=== PATIENT | male | born 1965 | race Caucasian/White ===

== ENCOUNTER → 2022-05-02 06:40 | Outpatient (CLI) | payer BC, SELFPAY ==
[2022-05-01 18:49] LABS: Alanine Aminotransferase 28 U/L (12-78); Albumin Level 4.5 g/dl (3.5-5.0); Albumin/Globulin Ratio 1.6 (1.1-1.8); Alkaline Phosphatase 99 U/L (38-126); Anion Gap 9.8 mEq/L (5-15); Aspartate Amino Transferase 33 U/L (17-59); Blood Urea Nitrogen 17 mg/dl (9-20); Calcium 9.7 mg/dl (8.4-10.2); Carbon Dioxide 29 mmol/L (22.0-30.0); Chloride 106 mmol/L (98-107); Estimated Glomerular Filt Rate 88 ml/min (>60); GFR (African American) 106 ML/MIN (>60); Globulin 2.9 g/dL (1.3-3.2); Glucose 122 mg/dl (74-100); Potassium 4.8 mmoL/L (3.5-5.1); Sodium 140 mmol/L (136-145); Total Protein,Serum 7.4 g/dl (6.3-8.2)
[2022-05-01 18:50] LABS: Bilirubin,Total 0.1 mg/dl (0.2-1.3)
[2022-05-01 19:18] LABS: Prostate Specific Ag Screen 0.3 ng/ml (0.0-4.0); Thyroid Stimulating Hormone 0.89 uIU/mL (0.465-4.68)
== END ==
PROVIDERS: PCP Family Medicine; Visit Provider Family Medicine
DX: I10 Essential (primary) hypertension (principal); N40.0 Benign prostatic hyperplasia without lower urinary tract symptoms; R68.89 Other general symptoms and signs; Z12.5 Encounter for screening for malignant neoplasm of prostate
CPT/HCPCS: 80053; 84443; G0103

== ENCOUNTER → 2023-08-20 14:03 | Outpatient (CLI) | payer BC, SELFPAY ==
[2023-08-20 19:04] LABS: Basophils # 0.1 K/mm3 (0-0.2); Basophils % 0.7 % (0.1-2.0); Eosinophils # 0.1 K/mm3 (0.0-0.4); Eosinophils % 1.6 % (0.1-12.0); Hematocrit 47.3 % (42.0-52.0); Hemoglobin 16.1 g/dL (14.1-18.0); Lymphocytes # 3.3 K/mm3 (0.7-4.5); Lymphocytes % 38.1 % (10-50); Mean Corpuscular Hemoglobin 31.9 pg (27.0-31.2); Mean Corpuscular Volume 93.9 fl (80-94); Mean Platelet Volume 8.7 fl (7.4-10.4); Monocytes # 0.5 K/mm3 (0.1-1.0); Monocytes % 5.2 % (1.7-9.3); Neutrophils # 4.7 K/mm3 (1.8-7.8); Neutrophils % 54.5 % (37.0-80.0); Platelet Count 247 K/mm3 (142-424); Red Blood Count 5.04 M/mm3 (4.60-6.20); Red Cell Distribution Width 13.4 % (11.5-17.5); White Blood Count 8.7 K/mm3 (4.8-10.8)
[2023-08-20 19:08] LABS: Alanine Aminotransferase 31 U/L (12-78); Albumin Level 4.7 g/dl (3.5-5.0); Albumin/Globulin Ratio 1.6 (1.1-1.8); Alkaline Phosphatase 78 U/L (38-126); Anion Gap 14.1 mEq/L (5-15); Aspartate Amino Transferase 32 U/L (17-59); Bilirubin,Total 0.6 mg/dl (0.2-1.3); Blood Urea Nitrogen 13 mg/dl (9-20); Calcium 9.1 mg/dl (8.4-10.2); Carbon Dioxide 23 mmol/L (22.0-30.0); Chloride 102 mmol/L (98-107); Estimated Glomerular Filt Rate 117 ml/min (>60); GFR (African American) 141 ML/MIN (>60); Globulin 2.9 g/dL (1.3-3.2); Glucose 127 mg/dl (74-100); Potassium 4.1 mmoL/L (3.5-5.1); Sodium 135 mmol/L (136-145); Total Protein,Serum 7.6 g/dl (6.3-8.2)
[2023-08-20 19:38] LABS: Prostate Specific Ag Screen 0.4 ng/ml (0.0-4.0)
== END ==
PROVIDERS: PCP Family Medicine; Visit Provider Family Medicine
DX: I10 Essential (primary) hypertension (principal); Z12.5 Encounter for screening for malignant neoplasm of prostate
CPT/HCPCS: 80053; 85025; G0103

== ENCOUNTER 2024-09-15 16:35 | Outpatient (CLI) | payer BC, SELFPAY ==
[2024-09-15 18:35] LABS: Alanine Aminotransferase 28 U/L (12-78); Albumin Level 4.5 g/dl (3.5-5.0); Albumin/Globulin Ratio 1.9 (1.1-1.8); Alkaline Phosphatase 40 U/L (38-126); Anion Gap 14.6 mEq/L (5-15); Aspartate Amino Transferase 28 U/L (17-59); Bilirubin,Total 0.5 mg/dl (0.2-1.3); Blood Urea Nitrogen 20 mg/dl (9-20); Calcium 9.7 mg/dl (8.4-10.2); Carbon Dioxide 25 mmol/L (22.0-30.0); Chloride 102 mmol/L (98-107); Estimated Glomerular Filt Rate 87 ml/min (>60); GFR (African American) 105 ML/MIN (>60); Globulin 2.4 g/dL (1.3-3.2); Glucose 107 mg/dl (74-100); Potassium 4.6 mmoL/L (3.5-5.1); Sodium 137 mmol/L (136-145); Total Protein,Serum 6.9 g/dl (6.3-8.2)
[2024-09-21 11:23] LABS: Free Testosterone (Direct) 5.9 pg/mL (7.2-24.0); Testosterone, Total, LC/MS 238.7 ng/dL (264.0-916.0)
== END 2024-09-15 23:59 | disposition home or self-care (01) ==
LOC: LAB.DROPOF 09-16 12:56
PROVIDERS: PCP Family Medicine; Visit Provider Family Medicine
DX: N52.9 Male erectile dysfunction, unspecified (principal); E11.9 Type 2 diabetes mellitus without complications; Z79.85 Long-term (current) use of injectable non-insulin antidiabetic drugs; Z79.84 Long term (current) use of oral hypoglycemic drugs
CPT/HCPCS: 84402; 84403; 80053

== ENCOUNTER 2025-01-26 16:27 | Outpatient (CLI) | payer BC, SELFPAY ==
[2025-01-26 19:49] LABS: Alanine Aminotransferase 25 U/L (12-78); Albumin Level 4.2 g/dl (3.5-5.0); Albumin/Globulin Ratio 1.4 (1.1-1.8); Alkaline Phosphatase 63 U/L (38-126); Anion Gap 11.3 mEq/L (5-15); Aspartate Amino Transferase 23 U/L (17-59); Bilirubin,Total 0.3 mg/dl (0.2-1.3); Blood Urea Nitrogen 15 mg/dl (9-20); Calcium 9.4 mg/dl (8.4-10.2); Carbon Dioxide 26 mmol/L (22.0-30.0); Chloride 104 mmol/L (98-107); Estimated Glomerular Filt Rate 99 ml/min (>60); GFR (African American) 120 ML/MIN (>60); Globulin 2.9 g/dL (1.3-3.2); Glucose 121 mg/dl (74-100); Potassium 4.3 mmoL/L (3.5-5.1); Sodium 137 mmol/L (136-145); Total Protein,Serum 7.1 g/dl (6.3-8.2)
== END 2025-01-26 23:59 | disposition home or self-care (01) ==
LOC: LAB.DROPOF 01-28 13:11
PROVIDERS: PCP Family Medicine; Visit Provider Family Medicine
DX: E11.9 Type 2 diabetes mellitus without complications (principal)
CPT/HCPCS: 80053

== ENCOUNTER 2025-04-20 16:06 | Outpatient (CLI) | payer BC, SELFPAY ==
[2025-04-20 19:43] LABS: Chloride 101 mmol/L (98-107); Potassium 4.2 mmoL/L (3.5-5.1); Sodium 136 mmol/L (136-145)
[2025-04-20 19:46] LABS: Anion Gap 12.2 mEq/L (5-15); Blood Urea Nitrogen 20 mg/dl (9-20); Calcium 9.5 mg/dl (8.4-10.2); Carbon Dioxide 27 mmol/L (22.0-30.0); Creatinine,Serum 0.90 mg/dl (0.66-1.25); Estimated Glomerular Filt Rate 87 ml/min (>60); GFR (African American) 105 ML/MIN (>60); Glucose 119 mg/dl (74-100)
--- OUTSIDE RECORDS SUMMARY | 2025-04-21 11:41 | XMS_ITS | Data Portability ---
Author Organization [facility] Address [address] [place] [address] Assessment Encounter Date Assessment Date Assessment LastModified by Organization Details LastModified Time 07/27/2021 07/27/2021 bmp,hba1c, urine micro alb--he is not fasting today he is doing well he is going for back surgery on 08-15-Dr Marcum will be in the hospital a few days and then will go stay with his parents for a while told him to make sure he does physical therapy--this will help him ambulate and get better faster also watch diet in sweets and starches--high BS interfere with healing he will work on it cannot exercise due to his back taking his 2 meds daily no falls no depression is going thru a divorce aftr 34 years continue meds f/u in 4 months with labs mchary Not available 07/27/2021 08:54:46 08/29/2021 08/29/2021 Hospital f/u done med rec done he has lost 25 pounds from last visit bmp,hba1c,cbc today he is having pain and swelling of right calf-is tender there will check venous us of both legs--today at 1.30 at [facility] will give some Xarelto samples for now--15 mg bid for 2 weeks 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 spent over 45 mins in pt care today home health is coming to his house for PT and OT no falls eats frequent small meals-drink plenty of fluids-stay hydrated if you get any soa or chest pain-go to the ER--he is at risk for PE wrote things down for him-his Mother who is a retired nurse is taking care of him-he is staying with her keep f/u in Oct mchary Not available 08/29/2021 09:54:44 09/19/2021 09/19/2021 hospital f/u also done med rec done no med changes-is on pain meds form spine he takes them often-so is drowsy and sleeping most of the day-not eating much told him he needs to cut down the frequency of pain meds he continues to have some back pain right leg looks good-no swelling, not tender he was seen by hematology in the hospital --they rec indef anticoag as this is his second DVT in a year-they did hemophilia work up -was neg-they found no cause-he did a f/u phone visit with them after d/c--no further f/u is planned he is tolerating Xarelto well-no bleeding no falls--fall precautions d/w him-fredi since he is on a blood thinner let me know if you have any bleeding s/s of PE d/w him BP is good last hba1c was 6.9 %--will see how it is in November he is not eating much-has lost more weight continue meds f/u in 3 months with labs mchary Not available 09/19/2021 12:17:07 12/04/2021 12/04/2021 cmp,lipids,hba 1c he is doing okay 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 for a short while-will sit down if he needs is using a cane now all this due to back pain--but his back is better-he is on Tylenol now which helps him-he sees Spine MD in July he has fallen a few times as he loses his balance at times-told him to use a walker if that will help him balance more he is taking his BP med and statin daily tolerating Xarelto well-no bleeding-will need to stay on anti coag rest of his life he has been eating bad-is eating more fast food now that he is back at work told him to work on his diet--he has gained 14 pounds from last visit he will try continue meds f/u in 3 months with labs and pe mchary Not available 12/04/2021 09:04:41 02/27/2022 02/27/2022 bmp,hba1c Ophthal for diabetes eye exam--Dr. 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 Lab None recorded. Referral None recorded. Procedures None recorded. Surgeries None recorded. Imaging None recorded. Medication Orders simvastatin 20 mg tablet 2021 022 [id number], [address] [place], [address], 10:32:31 Patient TargetsNo targets recorded. Patient InstructionsNo instructions recorded. Reason for Referral None Reported. Results Created Date Observation Date Name Description Value Unit Range Abnormal Flag Note LastModifiedBy Organization Detail LastModifiedTime 07/27/2007/28/2021 ALBUM IN, RANDO M URINE W/CRE ATINI NE creatinine, random urine 81 mg/dL 20-[address] [facility] [address] [facility], [place], [address], 07/28/2021 13:34:48 07/27/20 21 07/28/2021 ALBUM IN, RANDO M URINE W/CRE ATINI NE albumin, urine 0.4 mg/dL see note: normal Refer ence Range : Refer ence Range Not estab lishe d Not Available [facility] [address] [place], [address], 07/28/2021 13:34:48 07/27/2007/28/2021 ALBUM IN, RANDO M URINE W/CRE ATINI NE albumin/crea tinine ratio, random urine 5 mcg/m g_cre at <30 normal The ADA defin es abnor malit ies in album in excre tion as follo ws: Album inuri a Categ ory Resul t (mcg/ mg creat inine ) Claudine l to Mildl y incre ased <30 Moder ately incre ased 30-29 9 Sever bradly incre ased > OR = 300 The ADA recom mends that at least two of three speci mens colle cted withi n a 3-6 month perio d be abnor mal befor e consi chad g a patie nt to be withi n a diagn ostic categ ory. Not Available [facility] [address] [facility], [place], [address], 07/28/2021 13:34:48 07/27/2007/28/2021 BASIC METAB OLIC PANEL glucose 240 mg/dL 65-99 high Fasti ng refer ence inter lise For someo ne witho ut known diabe freddie, a gluco se value >125 mg/dL indic ates that they may have diabe freddie and this shoul d be confi rmed with a follo w-up test. Not Available [facility] [address] [place], [address], 07/28/2021 13:34:49 07/27/2007/28/2021 BASIC METAB OLIC PANEL urea nitrogen (BUN) 18 mg/dL 7-25 normal Not Available [facility] [address] [facility], [place], [address], 07/28/2021 13:34:49 07/27/20 21 07/28/2021 BASIC METAB OLIC PANEL creatinine 0.81 mg/dL 0.70-1 .33 normal For patie nts >49 years of age, the refer ence limit for Creat inine is appro ximat bradly 13% highe r for peopl e ident ified as Afric an-Am haley n. Not Available [facility] [address], [place], [address], 07/28/2021 13:34:49 07/27/20 21 07/28/2021 BASIC METAB OLIC PANEL eGFR non-afr. greenlandic 101 mL/mi n/1.7 3m2 > or = 60 normal Not Available [facility] [address] [facility], [place], [address], 07/28/2021 13:34:49 07/27/20 21 07/28/2021 BASIC METAB OLIC PANEL eGFR 117 mL/mi n/1.7 3m2 > or = 60 normal Not Available [facility] [address], [place], [address], 07/28/2021 13:34:49 07/27/20 21 07/28/2021 BASIC METAB OLIC PANEL BUN/creatini ne ratio NOT APPLIC ABLE (calc ) 6-22 Not Available [facility] [address] [facility], [place], [address], 07/28/2021 13:34:49 07/27/20 21 07/28/2021 BASIC METAB OLIC PANEL sodium 137 mmol/ L 135-14 6 normal Not Available [facility] [address], [place], [address], 07/28/2021 13:34:49 07/27/20 21 07/28/2021 BASIC METAB OLIC PANEL potassium 4.3 mmol/ L 3.5-5. 3 normal Not Available [facility] [address], [place], [address], 07/28/2021 13:34:49 07/27/2007/28/2021 BASIC METAB OLIC PANEL chloride 103 mmol/ L 98-110 normal Not Available [facility] [address] [place], [address], 07/28/2021 13:34:49 07/27/2007/28/2021 BASIC METAB OLIC PANEL carbon dioxide 27 mmol/ L 20-32 normal Not Available [facility] [address] [place], [address], 07/28/2021 13:34:49 07/27/2007/28/2021 BASIC METAB OLIC PANEL calcium 9.5 mg/dL 8.6-10 .3 normal Not Available [facility] [address] [facility], [place], [address], 07/28/2021 13:34:49 07/27/2007/28/2021 HEMOG LOBIN A1C hemoglobin A1C 7.1 %_of_ total _HGB <5.7 high For someo ne witho ut known diabe freddie, a hemog lobin A1c value of 6.5% or great er indic ates that they may have diabe freddie and this shoul d be confi rmed with a follo w-up test. For someo ne with known diabe freddie, a value <7% indic ates that their diabe freddie is well contr olled and a value great er than or equal to 7% indic ates subop timal contr ol. A1c targe ts shoul d be indiv idual ized based on durat ion of diabe freddie, age, comor bid condi tions , and other consi derat ions. Curre ntly, no conse nsus exist s regar ding use of hemog lobin A1c for diagn osis of diabe freddie for child renu. Not Available [facility] [address] [facility], [place], [address], 07/28/2021 13:34:49 11/30/20 21 08/30/2021 BASIC METAB OLIC PANEL W/EGF R glucose 192 mg/dL 65-99 high Fasti ng refer ence inter lise Not Available [facility] [address] [place], [address], 08/30/2021 05:30:04 08/29/20 21 08/30/2021 BASIC METAB OLIC PANEL W/EGF R urea nitrogen (BUN) 10.0 mg/dL 7.0-25 .0 Not Available [facility] [address] [place], [address], 08/30/2021 05:30:04 08/29/20 21 08/30/2021 BASIC METAB OLIC PANEL W/EGF R creatinine 0.92 mg/dL 0.70-1 .33 Not Available [facility] [address] [place], [address], 08/30/2021 05:30:04 08/29/20 21 08/30/2021 BASIC METAB OLIC PANEL W/EGF R eGFR non-afr. greenlandic 86 mL/mi n/1.7 3m2 >=60 Not Available [facility] [address] [place], [address], 08/30/2021 05:30:04 08/29/20 21 08/30/2021 BASIC METAB OLIC PANEL W/EGF R eGFR 104 mL/mi n/1.7 3m2 >=60 Not Available [facility] [address] [place], [address], 08/30/2021 05:30:04 08/29/20 21 08/30/2021 BASIC METAB OLIC PANEL W/EGF R BUN/creatini ne ratio 10.9 6.0-22 .0 Not Available [facility] [address] [place], [address], 08/30/2021 05:30:04 08/29/20 21 08/30/2021 BASIC METAB OLIC PANEL W/EGF R sodium 134 mmol/ L 135-14 6 low Not Available [facility] [address] [place], [address], 08/30/2021 05:30:04 08/29/20 21 08/30/2021 BASIC METAB OLIC PANEL W/EGF R potassium 5.2 mmol/ L 3.5-5. 3 Not Available [facility] [address] [place], [address], 08/30/2021 05:30:04 08/29/20 21 08/30/2021 BASIC METAB OLIC PANEL W/EGF R chloride 96 mmol/ L 98-110 low Not Available [facility] [address] [place], [address], 08/30/2021 05:30:04 08/29/20 21 08/30/2021 BASIC METAB OLIC PANEL W/EGF R carbon dioxide 24.0 mmol/ L 19.0-3 0.0 Not Available [facility] [address] [place] [address], [address], 08/30/2021 05:30:04 08/29/20 21 08/30/2021 BASIC METAB OLIC PANEL W/EGF R anion gap 14.0 2.0-11 .0 high Not Available [facility] [address] [place] [address], [address], 08/30/2021 05:30:04 08/29/20 21 08/30/2021 BASIC METAB OLIC PANEL W/EGF R calcium 9.9 mg/dL 8.6-10 .3 Not Available [facility] [address] [place] [address], [address], 08/30/2021 05:30:04 08/29/20 21 08/30/2021 CBC (INCL UDES DIFF/ PLT) white blood cell count 11.7 K/uL 3.8-10 .8 high Not Available [facility] [address] [place], [address], 08/30/2021 05:30:05 08/29/20 21 08/30/2021 CBC (INCL UDES DIFF/ PLT) red blood cell count 4.3 x10(6 )/uL 4.2-5. 8 Not Available [facility] [address] [place], [address], 08/30/2021 05:30:05 08/29/20 21 08/30/2021 CBC (INCL UDES DIFF/ PLT) hemoglobin 13.3 gram/ dL 13.2-1 7.1 Not Available [facility] [address] [place], [address], 08/30/2021 05:30:05 08/29/20 21 08/30/2021 CBC (INCL UDES DIFF/ PLT) hematocrit 39.8 % 38.5-5 0.0 Not Available [facility] [address] [place], [address], 08/30/2021 05:30:05 08/29/20 21 08/30/2021 CBC (INCL UDES DIFF/ PLT) MCV 93.4 fL 80.0-1 00.0 Not Available [facility] [address] [place], [address], 08/30/2021 05:30:05 08/29/20 21 08/30/2021 CBC (INCL UDES DIFF/ PLT) MCH 31.2 pg 27.0-3 3.0 Not Available [facility] [address] [place], [address], 08/30/2021 05:30:05 08/29/20 21 08/30/2021 CBC (INCL UDES DIFF/ PLT) MCHC 33.4 gram/ dL 32.0-3 6.0 Not Available [facility] [address], [place], [address], 08/30/2021 05:30:05 08/29/20 21 08/30/2021 CBC (INCL UDES DIFF/ PLT) RDW 13.3 % 11.0-1 5.0 Not Available [facility] [address], [place], [address], 08/30/2021 05:30:05 08/29/20 21 08/30/2021 CBC (INCL UDES DIFF/ PLT) platelet count 427 x10(3 )/uL 140-40 0 high Not Available [facility] [address], [place], [address], 08/30/2021 05:30:05 08/29/20 21 08/30/2021 CBC (INCL UDES DIFF/ PLT) MPV 8.4 fL 7.5-11 .5 Not Available [facility] [address], [place], [address], 08/30/2021 05:30:05 08/29/20 21 08/30/2021 CBC (INCL UDES DIFF/ PLT) neutrophils 73.7 Not Available [facility] [address], [place], [address], 08/30/2021 05:30:05 08/29/20 21 08/30/2021 CBC (INCL UDES DIFF/ PLT) absolute neutrophils 8.6 x10(3 )/uL 1.5-7. 8 high Not Available [facility] [address], [place], [address], 08/30/2021 05:30:05 08/29/20 21 08/30/2021 CBC (INCL UDES DIFF/ PLT) lymphocytes 17.6 % Not Available [facility] [address], [place], [address], 08/30/2021 05:30:05 08/29/20 21 08/30/2021 CBC (INCL UDES DIFF/ PLT) absolute lymphocytes 2.1 x10(3 )/uL 0.9-3. 9 Not Available [facility] [address], [place], [address], 08/30/2021 05:30:05 08/29/20 21 08/30/2021 CBC (INCL UDES DIFF/ PLT) monocytes 8.0 % Not Available [facility] [address], [place], [address], 08/30/2021 05:30:05 08/29/20 21 08/30/2021 CBC (INCL UDES DIFF/ PLT) absolute monocytes 0.9 x10(3 )/uL 0.2-1. 0 Not Available [facility] [address], [place], [address], 08/30/2021 05:30:05 08/29/20 21 08/30/2021 CBC (INCL UDES DIFF/ PLT) eosinophils 0.3 % Not Available [facility] [address], [place], [address], 08/30/2021 05:30:05 08/29/20 21 08/30/2021 CBC (INCL UDES DIFF/ PLT) absolute eosinophils 0.0 x10(3 )/uL 0.2-0. 5 low Not Available [facility] [address], [place], [address], 08/30/2021 05:30:05 08/29/20 21 08/30/2021 CBC (INCL UDES DIFF/ PLT) basophils 0.4 % Not Available [facility] [address], [place], [address], 08/30/2021 05:30:05 08/29/20 21 08/30/2021 CBC (INCL UDES DIFF/ PLT) absolute basophils 0.0 x10(3 )/uL 0.0-0. 2 Not Available [facility] [address] [place], [address], 08/30/2021 05:30:05 08/29/20 21 08/30/2021 CBC (INCL UDES DIFF/ PLT) NRBC 0 /100_ WBC 0-0 Not Available [facility] [address] [place], [address], 08/30/2021 05:30:05 08/29/20 21 08/30/2021 HEMOG LOBIN A1C hemoglobin A1C 6.9 %_of_ total _HGB <5.7 high For someo ne witho ut known diabe freddie, a hemog lobin A1c value of 6.5% or great er indic ates that they may have diabe freddie and this shoul d be confi rmed with a follo w-up test. For someo ne with known diabe freddie, a value <7% indic ates that their diabe freddie is well contr olled and a value great er than or equal to 7% indic ates subop timal contr ol. A1c targe ts shoul d be indiv idual ized based on durat ion of diabe freddie, age, comor bid condi tions , and other consi derat ions. Curre ntly, no conse nsus exist s krystle lee use of hemog lobin A1c for diagn osis of diabe freddie for child renu. Not Available [facility] [address] [facility], [place], [address], 08/30/2021 05:30:06 12/05/19 22 12/05/2021 LIPID PANEL triglyceride s 104 mg/dL <=149 Not Available [facility] [address] [facility], [place], [address], 12/05/2021 07:09:34 12/05/19 22 12/05/2021 LIPID PANEL cholesterol, total 180.0 mg/dL 125.0- 200.0 Not Available [facility] [address] [place], [address], 12/05/2021 07:09:34 12/05/19 22 12/05/2021 LIPID PANEL HDL cholesterol 51 mg/dL >=40 Not Available [facility] [address] [place], [address], 12/05/2021 07:09:34 12/05/19 22 12/05/2021 LIPID PANEL LDL-choleste rol 108.2 mg/dL <=130. 0 Bella able range <100 mg/dL for patie nts with CHD or diabe freddie and <70 mg/dL for diabe tic patie nts with known heart disea se. Not Available [facility] [address] [place], [address], 12/05/2021 07:09:34 12/05/19 22 12/05/2021 LIPID PANEL chol/HDLC ratio 3.53 ratio <=5.00 Not Available [facility] [address] [place], [address], 12/05/2021 07:09:34 12/05/19 22 12/05/2021 COMPR EHENS SARIAH METAB OLIC PANEL glucose 132 mg/dL 65-99 high Fasti ng refer ence inter lise Not Available [facility] [address] [place], [address], 12/05/2021 07:09:35 12/05/19 22 12/05/2021 COMPR EHENS SARIAH METAB OLIC PANEL urea nitrogen (BUN) 12.0 mg/dL 7.0-25 .0 Not Available [facility] [address] [place], [address], 12/05/2021 07:09:35 12/05/19 22 12/05/2021 COMPR EHENS SARIAH METAB OLIC PANEL creatinine 0.70 mg/dL 0.70-1 .33 Not Available [facility] [address] [place], [address], 12/05/2021 07:09:35 12/05/19 22 12/05/2021 COMPR EHENS SARIAH METAB OLIC PANEL eGFR non-afr. greenlandic 117 mL/mi n/1.7 3m2 >=60 Not Available [facility] [address] [place], [address], 12/05/2021 07:09:35 12/05/19 22 12/05/2021 COMPR EHENS SARIAH METAB OLIC PANEL eGFR 142 mL/mi n/1.7 3m2 >=60 Not Available [facility] [address] [place], [address], 12/05/2021 07:09:35 12/05/19 22 12/05/2021 COMPR EHENS SARIAH METAB OLIC PANEL BUN/creatini ne ratio 17.1 6.0-22 .0 Not Available [facility] [address] [place], [address], 12/05/2021 07:09:35 12/05/19 22 12/05/2021 COMPR EHENS SARIAH METAB OLIC PANEL sodium 140 mmol/ L 135-14 6 Not Available [facility] [address] [place], [address], 12/05/2021 07:09:35 12/05/19 22 12/05/2021 COMPR EHENS SARIAH METAB OLIC PANEL potassium 4.7 mmol/ L 3.5-5. 3 Not Available [facility] [address] [place], [address], 12/05/2021 07:09:35 12/05/19 22 12/05/2021 COMPR EHENS SARIAH METAB OLIC PANEL chloride 103 mmol/ L 98-110 Not Available [facility] [address] [place], [address], 12/05/2021 07:09:35 12/05/19 22 12/05/2021 COMPR EHENS SARIAH METAB OLIC PANEL carbon dioxide 26.0 mmol/ L 19.0-3 0.0 Not Available [facility] [address] [place], [address], 12/05/2021 07:09:35 12/05/19 22 12/05/2021 COMPR EHENS SARIAH METAB OLIC PANEL anion gap 11.0 2.0-11 .0 Not Available [facility] [address] [place], [address], 12/05/2021 07:09:35 12/05/19 22 12/05/2021 COMPR EHENS SARIAH METAB OLIC PANEL calcium 9.5 mg/dL 8.6-10 .3 Not Available [facility] [address] [place], [address], 12/05/2021 07:09:35 12/05/19 22 12/05/2021 COMPR EHENS SARIAH METAB OLIC PANEL protein, total 6.8 gram/ dL 6.1-8. 1 Not Available [facility] [address] [place], [address], 12/05/2021 07:09:35 12/05/19 22 12/05/2021 COMPR EHENS SARIAH METAB OLIC PANEL albumin 4.2 gram/ dL 3.6-5. 1 Not Available [facility] [address] [place], [address], 12/05/2021 07:09:35 12/05/19 22 12/05/2021 COMPR EHENS SARIAH METAB OLIC PANEL globulin 2.6 1.9-3. 7 Not Available [facility] [address] [facility] [place], [address], 12/05/2021 07:09:35 12/05/19 22 12/05/2021 COMPR EHENS SARIAH METAB OLIC PANEL albumin/glob ulin ratio 1.6 1.0-2. 5 Not Available [facility] [address] [place], [address], 12/05/2021 07:09:35 12/05/19 22 12/05/2021 COMPR EHENS SARIAH METAB OLIC PANEL bilirubin, total 0.7 mg/dL 0.2-1. 2 Not Available [facility] [address] [place], [address], 12/05/2021 07:09:35 12/05/19 22 12/05/2021 COMPR EHENS SARIAH METAB OLIC PANEL alkaline phosphatase 64 units /lite r 40-115 Not Available [facility] [address] [place], [address], 12/05/2021 07:09:35 12/05/19 22 12/05/2021 COMPR EHENS SARIAH METAB OLIC PANEL AST 15.0 units /lite r 10.0-3 5.0 Not Available [facility] [address] [place], [address], 12/05/2021 07:09:35 12/05/19 22 12/05/2021 COMPR EHENS SARIAH METAB OLIC PANEL ALT 19 units /lite r 9-46 Not Available [facility] [address] [place], [address], 12/05/2021 07:09:35 12/05/19 22 12/05/2021 HEMOG LOBIN A1C hemoglobin A1C 6.9 %_of_ total _HGB <5.7 high For someo ne witho ut known diabe freddie, a hemog lobin A1c value of 6.5% or great er indic ates that they may have diabe freddie and this shoul d be confi rmed with a follo w-up test. For someo ne with known diabe freddie, a value <7% indic ates that their diabe freddie is well contr olled and a value great er than or equal to 7% indic ates subop timal contr ol. A1c targe ts shoul d be indiv idual ized based on durat ion of diabe freddie, age, comor bid condi tions , and other consi derat ions. Curre ntly, no conse nsus exist s krystle lee use of hemog lobin A1c for diagn osis of diabe freddie for child renu. Not Available [facility] [address] [place], [address], 12/05/2021 07:09:36 02/28/20 22 02/28/2022 BASIC METAB OLIC PANEL W/EGF R glucose 124 mg/dL 65-99 high Fasti ng refer ence inter lise Not Available [facility] [address] [place], [address], 02/28/2022 07:12:22 02/28/20 22 02/28/2022 BASIC METAB OLIC PANEL W/EGF R urea nitrogen (BUN) 12.0 mg/dL 7.0-25 .0 Not Available [facility] [address] [place], [address], 02/28/2022 07:12:22 02/28/20 22 02/28/2022 BASIC METAB OLIC PANEL W/EGF R creatinine 0.72 mg/dL 0.70-1 .33 Not Available [facility] [address] [place], [address], 02/28/2022 07:12:22 02/28/20 22 02/28/2022 BASIC METAB OLIC PANEL W/EGF R eGFR non-afr. greenlandic 113 mL/mi n/1.7 3m2 >=60 Not Available [facility] [address] [facility] [place], [address], 02/28/2022 07:12:22 02/28/20 22 02/28/2022 BASIC METAB OLIC PANEL W/EGF R eGFR 137 mL/mi n/1.7 3m2 >=60 Not Available [facility] [address] [place], [address], 02/28/2022 07:12:22 02/28/20 22 02/28/2022 BASIC METAB OLIC PANEL W/EGF R BUN/creatini ne ratio 16.7 6.0-22 .0 Not Available [facility] [address] [place], [address], 02/28/2022 07:12:22 02/28/20 22 02/28/2022 BASIC METAB OLIC PANEL W/EGF R sodium 135 mmol/ L 135-14 6 Not Available [facility] [facility] [address] [place], [address], 02/28/2022 07:12:22 02/28/20 22 02/28/2022 BASIC METAB OLIC PANEL W/EGF R potassium 4.6 mmol/ L 3.5-5. 3 Not Available Deed [facility] [address] [place], [address], 02/28/2022 07:12:22 02/28/20 22 02/28/2022 BASIC METAB OLIC PANEL W/EGF R chloride 101 mmol/ L 98-110 Not Available Deed [facility] [address] [place], [address], 02/28/2022 07:12:22 02/28/20 22 02/28/2022 BASIC METAB OLIC PANEL W/EGF R carbon dioxide 26.0 mmol/ L 19.0-3 0.0 Not Available [facility] [address] [place], [address], 02/28/2022 07:12:22 02/28/20 22 02/28/2022 BASIC METAB OLIC PANEL W/EGF R anion gap 8.0 2.0-11 .0 Not Available [facility] [address] [facility], [place], [address], 02/28/2022 07:12:22 02/28/20 22 02/28/2022 BASIC METAB OLIC PANEL W/EGF R calcium 9.3 mg/dL 8.6-10 .3 Not Available [facility] [address] [place] [place], [address], 02/28/2022 07:12:22 02/28/20 22 02/28/2022 HEMOG LOBIN A1C hemoglobin A1C 6.6 %_of_ total _HGB <5.7 high For someo ne witho ut known diabe freddie, a hemog lobin A1c value of 6.5% or great er indic ates that they may have diabe freddie and this shoul d be confi rmed with a follo w-up test. For someo ne with known diabe freddie, a value <7% indic ates that their diabe freddie is well contr olled and a value great er than or equal to 7% indic ates subop timal contr ol. A1c targe ts shoul d be indiv idual ized based on durat ion of diabe freddie, age, comor bid condi tions , and other consi derat ions. Curre ntly, no conse nsus exist s krystle lee use of hemog lobin A1c for diagn osis of diabe freddie for child renu. Not Available [facility] [address] [facility], [place], [address], 02/28/2022 07:12:22 08/29/20 21 08/29/2021 US, doppl er, venou s No observ ation record ed. [facility] [address] [place], [address], 09/19/2021 11:57:42 Result Notes None recorded. Problems Name Problem SNOMED Code Status Onset Date Resolution Date Notes Provider Name and Address Organization Details Recorded Time Body mass index 30+ - obesity 379779794 Active Olya Hicks MD [facility], [place], [address], [facility] 6 10:54:37 Benign essential hypertens ion 5052471 Active 2019 Olya Hicks MD [address] [place] [address] Road,[address], [place], [address], [facility] 0 10:53:47 Type 2 diabetes mellitus without complicat ion 665609321 Active 2019 Olya Hicks MD [address] [place] [address] Road,[address], [place], [address], [facility] 0 10:05:34 Pulmonary embolism 38760060 Completed 201907/27/2021 Olya Hicks MD [address] [place] [address] Road,[address], [place], [address], [facility] 1 08:42:09 Mixed hyperlipi demia 781883868 Active 2020 Olya Hicks MD [address] [place] [address] Road,[address], [place], [address], [facility] 1 11:24:57 Chronic deep venous thrombosi s of right lower extremity 086650107830 102 Completed 202112/04/2021 Olya Hicks MD [address] [place] [address] Road,[address], [place], [address], [facility] 2 08:52:32 Deep venous thrombosi s of lower extremity 176917404 Active 2021 Olya Hicks MD [address] [place] [address] Road,[address], [place], [address], [facility] 2 08:52:40 Notes:Left leg DVT and PE 2019 Right leg TLG-23-49-21--he has to stay on anti coag rest of his life Problem Notes None recorded. Procedures Surgical History Date Name Laterality Status Provider Name and Address Organization Details Recorded Time 1 Unlisted procedure spine completed Olya Hicks MD [address] [facility],[address], [place], [address], [facility] 08/16/2021 10:43:41 7 Colonoscopy completed Olya Hicks MD [address] [facility],[address], [place], [address], [facility] 09/27/2017 12:09:01 0 Foot surgery completed Barb Cortes [facility] 11/22/2015 10:25:25 Imaging Results None recorded. Procedure Notes None recorded. Medical Equipment None Reported. Allergies No known drug allergies Medications Name Sig Start Date Stop Date Status Note LastModified by Organization Details LastModified Time azithromycin 250 mg tablet TAKE 2 TABLETS BY MOUTH ON DAY 1 AND THEN TAKE 1 TABLET BY MOUTH ONCE A DAY ON DAY 2 THROUGH DAY 5 05/30 completed Not Available Not Available Not Available metoprolol succinate ER 50 mg tablet,exten ded release 24 hr Take 1 tablet every day by oral route. 03/08 completed Not Available Not Available Not Available hydrocodone 5 mg-acetamino phen 325 mg tablet 05/30 completed Not Available Not Available Not Available lisinopril 20 mg tablet Take 1 tablet by mouth twice daily active Not Available Not Available No t Available tamsulosin 0.4 mg capsule 12/04 completed Not Available Not Available Not Available simvastatin 20 mg tablet Take 1 tablet by mouth once daily 2021 active Not Available Not Available Not Avai lable diclofenac sodium 75 mg tablet,delay ed release Take 1 tablet twice a day by oral route with meals. 02/04 completed Not Available Not Available Not Available mupirocin 2 % topical ointment 09/19 completed Not Available Not Available Not Available oxycodone-ac etaminophen 7.5 mg-325 mg tablet 12/04 completed Not Available Not Available Not Available methylpredni solone 4 mg tablets in a dose pack take as dierecte d--take with food 12/04 completed Not Available Not Available Not Available amoxicillin 875 mg-potassium clavulanate 125 mg tablet active Not Available Not Available Not Available olmesartan 40 mg tablet Take 1 tablet every day by oral route. 02/07 completed Not Available Not Available Not Available zinc sulfate 50 mg zinc (220 mg) capsule Take 1 capsule by oral route. 05/30 completed Not Available Not Available Not Available Xarelto 15 mg tablet Take 1 tablet every day by oral route. 09/16 completed Not Available Not Available Not Available Xarelto 20 mg tablet TAKE 1 TABLET BY MOUTH ONCE DAILY active Not Available Not Available No t Available Vitals Date Recorded Heart rate Respiratory rate Systolic And Diastolic Provider Name and Address Organization Details Last Updated DateTime 12/04/2021 70 /min 16 /min 122/80 mm[Hg] Olya Hicks MD [address] [place] [address], [address] 12/04/2021 08:56:51 Date Recorded Body height Body mass index (BMI) Body weight Provider Name and Address Organization Details Last Updated DateTime 12/04/2021 177.8 cm 33.6 kg/m2 173214.61 g yessi Alexa [facility] 12/04/2021 08:47:56 Date Recorded Heart rate Respiratory rate Systolic And Diastolic Provider Name and Address Organization Details Last Updated DateTime 02/27/2022 76 /min 16 /min 116/80 mm[Hg] Olya Hicks MD [address] [place] [address],[facility] [address], [place], [address] 02/27/2022 10:30:17 Date Recorded Body height Body mass index (BMI) Body weight Provider Name and Address Organization Details Last Updated DateTime 02/27/2022 177.8 cm 33.1 kg/m2 394523.84 g Barb Cortes [facility] 02/27/2022 10:23:31 Date Recorded Heart rate Respiratory rate Systolic And Diastolic Provider Name and Address Organization Details Last Updated DateTime 07/27/2021 70 /min 16 /min 122/80 mm[Hg] Olya Hicks MD [facility] [facility],[address], [place], [address] 07/27/2021 08:45:22 Date Recorded Body height Body mass index (BMI) Body weight Provider Name and Address Organization Details Last Updated DateTime 07/27/2021 177.8 cm 36.6 kg/m2 865173.05 g [facility] 07/27/2021 08:39:49 Date Recorded Heart rate Respiratory rate Body temperature Systolic And Diastolic Provider Name and Address Organization Details Last Updated DateTime 08/29/2021 78 /min 16 /min 97.8 [degF] 114/78 mm[Hg] Olya Hicks MD [address] [place] [address] [place] [address] 09:12:58 Date Recorded Body height Body mass index (BMI) Body weight Provider Name and Address Organization Details Last Updated DateTime 08/29/2021 177.8 cm 33 kg/m2 503846.25 g [facility] 08/29/2021 09:05:47 Date Recorded Heart rate Respiratory rate Systolic And Diastolic Provider Name and Address Organization Details Last Updated DateTime 09/19/2021 72 /min 16 /min 112/78 mm[Hg] Olya Hicks MD [address] [place] [address],[address], [place], [address] 09/19/2021 12:05:38 Date Recorded Body height Body mass index (BMI) Body weight Provider Name and Address Organization Details Last Updated DateTime 09/19/2021 177.8 cm 31.6 kg/m2 81249.32 g [facility]i [facility] 09/19/2021 11:46:29 Social History Question Answer Notes LastModified by Organizat ion Details LastModified Time Tobacco Smoking Status Current Every Day Smoker 1 cigar per day Barb pichardo [facility] 11/22/2015 10:25:25 Do You Have An Advance Directive? No Information not available 11/22/2015 How Much Tobacco Do You Chew? None Information not available 11/22/2015 Sex: Unknown Functional Status Question Answer Note LastModified by Organization D etails LastModified Time What is your level of alcohol consumption? Moderate Information not available 11/22/2015 Mental Status None recorded. Family History Relationship Description Onset Age of this Age Resolved Age Notes LastModified by Organization Details LastModified Time Father Diabetes mellitus 55 [email or web address] Not available 2015 10:34:41 Father Hypertensive disorder [email or web address] Not available 2019 10:09:27 Mother Diabetes mellitus [email or web address] Not available 2015 10:34:41 Mother Hypertensive disorder [email or web address] Not available 2019 10:09:27 Medical History Condition Response Coronary Artery Disease N Gout N cardiac dysarrthymias N Kidney Stones N Chronic Headache N urinary incontinence N Hyperthyroidism N ovarian cyst N cardiomyopathy N Depression N Hypothyroidism N COPD N dysthymia N PVD N MS N Anxiety Disorder N Vitamin D defeciency N seizure disorder N Arthritis N Diverticulosis N insomnia N Heart Valve Replacement N migraine N Cancer N IBS N Heart Valve Disease N Stroke N congestive heart failure N anemia N BPV N High Cholesterol N neck pain N Liver Disease N Rheumatoid Arthritis N AAA N Fibromyalgia N low back pain N Kidney Disease N alzhiemers dementia N RLS N DVT N atrial fibrillation N heartburn N Osteopenia N Diabetes N allergic rhinitis N Tuberculosis N BPH N LAVONNE N Asthma N ED N GERD/Reflux N Heart Disease N pulmonary embolism N Restless leg syndrome N Hypertension N Osteoporosis N Immunizations Vaccine Type Date Status Note Provider Nam e and Address Organization Details Recorded Time Influenza, high-dose, trivalent, PF 6 completed Barb Cortes [facility] 11/22/2015 10:23:03 SARS-COV-2 (COVID-19) vaccine, UNSPECIFIED 1 completed yessi Liu [facility] 04/13/2021 09:32:29 SARS-COV-2 (COVID-19) vaccine, UNSPECIFIED 1 completed yessi Liu [facility] 04/13/2021 09:32:46 Influenza, split virus, quadrivalent, preservative 1 completed Olya Hicks MD [address] [facility],[address], [place], [address], [facility] 09/19/2021 12:07:27 pneumococcal polysaccharide PPV23 1 [place] [address] [place] [address],[address], [place], [address], [facility] 09/19/2021 12:07:43 SARS-COV-2 (COVID-19) vaccine, UNSPECIFIED 1 completed yessi Alexa [facility] 12/04/2021 08:49:06 Past Encounters Encounter ID Performer Location Encounter Start Date Encounter Closed Date Diagnosis/Indication Diagnosis SNOMED-CT Code Diagnosis ICD10 Code Diagnosis Note [id number] Olya Hicks MD [address] [place], [place] [id number] 11/22/2015 10:01:59 11/22/2015 10:48:21 Adult health examination 871333795 Z00.00 Body mass index 30+ - obesity 707850696 Z68.36 [id number] Al Hicks MD [address] [place], [place] [id number] 03/26/2017 11:04:39 03/26/2017 12:12:20 Body mass index 30+ - obesity 110763848 Z68.36 Knee pain 98338086 M25.5 69 Benign ess ential hypertension 3874131 I10 [id number] Olya Hicks MD [address] [place], [place] [address] 01/04/2020 09:55:04 01/04/2020 11:52:05 Sprain of right ankle 2051633607 0574800 S93.401A Malignant essential hypertension 80189879 I10 Body mass index 30+ - obesity 881707271 Z68.36 [id number] Olya Hicks MD [address] [place], [place] [address] 02/05/2020 10:48:49 02/05/2020 12:33:02 Benign essential hypertension 2293369 I10 Adult heal th examination 564640293 Z00.00 Body mass index 30+ - obesity 922897348 Z68.36 [id number] Olya Hicks MD [address] [place], [place] [address] 03/08/2020 08:48:33 03/08/2020 09:05:18 Benign essential hypertension 0006542 I10 Type 2 salazar betes mellitus without complication 236551830 E11.9 [id number] Olya Hicks MD [address] [place], [place] [address] 05/17/2020 10:24:51 05/17/2020 11:04:11 Exposure to SARS-CoV-2 704120839 Z20.828 Acute bronchitis 1586335 2 J20.9 Acute maxi llary sinusitis 25561140 J01.00 [id number] Olya Hicks MD [address] [place], [place] [id number] 05/30/2020 10:46:18 05/30/2020 16:19:18 Deep venous thrombosis of lower extremity 753161165 I82.409 Pulmonary embolism 98177 003 I26.99 Benign ess ential hypertension 4131227 I10 [id number] Olya Hicks MD [address] [place], [place] [address] 06/23/2020 08:40:39 06/23/2020 09:19:57 Type 2 diabetes mellitus without complication 262078923 E11.9 Benign ess ential hypertension 9608962 I10 Body mass index 30+ - obesity 583342743 Z68.33 Pulmonary embolism 22921 003 I26.99 [id number] Olya Hicks MD [address] [place], [place] [address] 09/16/2020 08:29:13 09/16/2020 09:00:07 Type 2 diabetes mellitus without complication 795386815 E11.9 Benign ess ential hypertension 3437846 I10 Body mass index 30+ - obesity 154348266 Z68.35 Pulmonary embolism 16141 003 I26.99 [id number] [facility] [address] [facility] [address] [place] [address], [place] [id number] 12/23/2020 08:49:10 12/23/2020 14:11:58 Type 2 diabetes mellitus without complication 940405555 E11.9 Benign ess ential hypertension 1962127 I10 Body mass index 30+ - obesity 384521363 Z68.37 Pulmonary embolism 57346 003 I26.99 [id number] Olya Hicks MD [facility] [address] [facility] [address] [place], [place] [id number] 04/13/2021 09:18:26 04/13/2021 11:13:05 Type 2 diabetes mellitus without complication 168920938 E11.9 Benign ess ential hypertension 1407958 I10 Body mass index 30+ - obesity 262088879 Z68.36 Mixed hyperlipidemia 267 576250 E78.2 Adult heal th examination 137900546 Z00.00 [id number] [facility] [address] [facility] [address], [place] [id number] 07/27/2021 08:36:49 07/27/2021 14:22:14 Type 2 diabetes mellitus without complication 404157561 E11.9 Benign ess ential hypertension 8037941 I10 Body mass index 30+ - obesity 792169988 Z68.36 Mixed hyperlipidemia 267 131454 E78.2 [id number] [facility] [address] [facility] [address] [place], [place] [id number] 08/29/2021 09:01:17 08/29/2021 13:03:15 Type 2 diabetes mellitus without complication 144649451 E11.9 Postoperative visit 1836 48350 Z09 Benign ess ential hypertension 0555104 I10 Pain in ri ght lower limb 783280537 M79.604 [id number] MD JOSEPH JuddY [facility] [address] [facility] [address] [place] [address], [place] [id number] 09/19/2021 11:32:24 09/19/2021 12:33:51 Acute deep venous thrombosis of right lower extremity 2231280754 40399 I82.401 Benign ess ential hypertension 4813763 I10 Type 2 salazar betes mellitus without complication 221178727 E11.9 Mixed hyperlipidemia 267 334599 E78.2 [id number] Olya Hicks MD [facility] [address] [facility] [address] [place] [id number] 12/04/2021 08:43:11 12/04/2021 10:01:01 Type 2 diabetes mellitus without complication 308467256 E11.9 Benign ess ential hypertension 6156882 I10 Body mass index 30+ - obesity 793330413 Z68.36 Mixed hyperlipidemia 267 974139 E78.2 Acute deep vein thrombosis of lower limb 9315578031 08 I82.409 [id number] Olya Hicks MD [facility] [address] [facility] [address] [place] [id number] 02/27/2022 10:20:34 02/27/2022 11:59:26 Deep venous thrombosis of lower extremity 152018945 I82.409 Type 2 salazar betes mellitus without complication 152277105 E11.9 Body mass index 30+ - obesity 674326231 Z68.33 Benign ess ential hypertension 1042832 I10 Mixed hyperlipidemia 267 531758 E78.2 Adult heal th examination 855150998 Z00.00 Health Concerns Section Related Observation LastModified by Organization Detai ls LastModified Time None Recorded Concern Status LastModified by Organization Details LastModified Time None Recorded Advance Directives Directive N: Payers Insurance Date Sequence Insurance Name Policy Number Policy Teixeira Covered Member ID Teixeira Member ID Guarantor Name 07/27/2021 1 [employer] (PPO) [id number] 1 Antwan Montero [id number] 1 Antwan Montero 05/26/2022 1 [employer] (POS) Antwan Montero [id number] Antwan Montero 07/27/2021 1 [employer] (PPO) Antwan Montero [id number] Antwan Montero Notes Date Note Type Note Provider Name and Address Organization Details Recorded Time 07/27/20 21 text/htm l Diabetes F/UReported bypatient.Associated Symptoms:no dizziness; no sweats; no headaches; no confusion; no increased thirst; no increased appetite; no increased urinationNotes:trying to control with dietHyperlipidemiaReported bypatient.Notes:on statin-tolerating wellHypertension F/UReported bypatient.Associated Symptoms:no dizziness; no lightheadedness; no chest pain; no shortness of breath; no palpitations; no edema; no calf pain with exertion Medications:taking medications as directed; no side effects from medication Olya Hicks MD [address] [facility],[address], [place], [address], [facility] 07/27/2021 09:34:32 08/29/20 text/htm l Diabetes F/UReported bypatient.Associated Symptoms:no dizziness; no sweats; no headaches; no confusion; no increased thirst; no increased appetite; no increased urination Had his Lumbar surgery done on 08-15-21did fine -had some urinary retention post op-[facility] comingnot eating much-low appetitetaking pain pills 1 every 4 hours and Valium 1 every 6 hours--is almost out of pain meds--states he is having more pain than before surgerysees surgeon on 09-28pain in his right calf for last few daysright leg feels like he has a sunburnno soa, no chest pain last OV his BS and Hba1c was up--he had refused meds thenhe has lost weight due to his surgerywants to check his level Olya Hicks MD [address] [facility],[address], [place], [address], [facility] 08/29/2021 10:33:48 09/19/20 text/htm l HyperlipidemiaReported bypatient.Notes:on statin-tolerating wellHypertension F/UReported bypatient.Associated Symptoms:no dizziness; no lightheadedness; no chest pain; no shortness of breath; no palpitations; no edema; no calf pain with exertion Medications:taking medications as directed; no side effects from medication F/u on Right leg DVT--diagnosed him on 08-29-21--I had given him Xarelto samples the day I saw himhe went to the ER on 08-30 due to leg pain--he was continued on Xarelto was seen by Hematology-they rec indef anticoag from now--as this is his second DVT--they did work up on him--no hematolgy cause found Olya Hicks MD [address] [facility],[address], [place], [address], [facility] 09/19/2021 13:03:49 12/05/19 text/htm l HyperlipidemiaReported bypatient.Notes:on statin-tolerating wellHypertension F/UReported bypatient.Associated Symptoms:no dizziness; no lightheadedness; no chest pain; no shortness of breath; no palpitations; no edema; no calf pain with exertion Medications:taking medications as directed; no side effects from medication F/u on Right leg DVT--diagnosed him on 08-29-21--on xarelto indef-no bleeding on it Olya Hicks MD [address] [facility],[address], [place], [address], [facility] 12/04/2021 09:26:00 02/28/20 text/htm l Diabetes F/UReported bypatient.Associated Symptoms:no dizziness; no sweats; no headaches; no confusion; no increased thirst; no increased appetite; no increased urinationNotes:trying to control with dietHyperlipidemiaReported bypatient.Notes:on statin-tolerating wellHypertension F/UReported bypatient.Associated Symptoms:no dizziness; no lightheadedness; no chest pain; no shortness of breath; no palpitations; no edema; no calf pain with exertion Medications:taking medications as directed; no side effects from medication wellness peon Xarelto for rec DVT ---no bleeding on it Olya Hicks MD [address] [facility],[address], [place], [address], [facility] 02/27/2022 11:15:57
--- OUTSIDE RECORDS SUMMARY | 2025-04-21 11:41 | XMS_ITS | Clinical Summary ---
Author Organization [facility] Address [address] [place] [id number] Care Team Providers Care Brick Off Bearer Name Role Phone Olya Hicks MD Primary Care Provider [phone] Allergies Active Allergy Reactions Criticality Noted Date Comments Other Shortness Of Breath,Swelling High 013 MINT FLAVORING Medications lisinopril (PRINIVIL) 20 MG tablet Take 20 mg by mouth 2 (two) times daily. Active simvastatin (ZOCOR) 20 MG tablet Take 20 mg by mouth nightly . 04/03/2021 Active Multiple Vitamin (MULTIVITAMIN ADULT PO) Take 1 tablet by mouth daily . Active senna-docusate (PERICOLACE) 8.6-50 MG Take 2 tablets by mouth daily. 40 tablet 3 08/31/2021 3:48 PM EST 08/18/2021 Active tamsulosin (FLOMAX) 0.4 MG CAPS Take 1 capsule by mouth daily. 30 capsule 08/31/2021 3:48 PM EST 08/18/2021 Active rivaroxaban (XARELTO) 15 MG TABS Take 15 mg by mouth 2 (two) times daily with meals for 21 days, then take 20 mg daily with meals. Active diazePAM (VALIUM) 5 MG tablet Take 1 tablet by mouth every 6 (six) hours as needed (muscle spasm). Max Daily Amount: 20 mg 40 tablet 08/31/2021 Active polyethylene glycol (GLYCOLAX) 17 g packet Take 17 g by mouth daily as needed (constipatio n). Active apixaban (ELIQUIS) 5 MG tablet Take 1 tablet by mouth 2 (two) times daily. 60 tablet 09/14/2021 Active Active Problems Problem Noted Date Diagnosed Date Acute embolism and thrombosi s of deep vein of right proximal lower extremity 09/01/2021 Acute deep vein thrombosis ( DVT) of proximal vein of right lower extremity 08/30/2021 Anxiety 08/30/2021 History of pulmonary embolism 08/30/2021 Hypertension 08/16/2021 High cholesterol 08/16/2021 Back pain 08/15/2021 Neurogenic claudication 07/06/2021 Spinal stenosis of lumbar re gion with neurogenic claudication 07/06/2021 Spondylolisthesis of lumbar region 07/06/2021 Pulmonary embolism with acute cor pulmonale 05/01 Acute deep vein thrombosis (DVT) of left lower e xtremity 05/19/2020 Acute respiratory failure with hypoxia 0 Hyperglycemia 05/19/2020 Colon cancer screening 09/11/2017 Overview (09/11/2017): Added automatically from request for surgery [id number] Family history of heart dise ase in male family member before age 55 Immunizations Immunization Administration Dates Next Due Hep A Pediatric/Adolescent (age less than 19) Hep B Ped/Adolescent 03/22/2014,02/18/2014 Hep B, Unspecified 03/22/2014,02/18/2014 Influenza, Unspecified 08/16/2021 Tdap 02/18/2014 Family History Medical History Relation Comments Heart disease Father Stroke Father Hyperlipidemia Mother Hypertension Mother Relation Status Comments Father Mother Alive Sister 1 Alive Sister 2 Alive Sister 3 Alive Sister 4 Alive Social History Tobacco Use Types Packs/Day Years Used Date Smoking Tobacco: Former Smokeless Tobacco: Never Comments:USED SMOKE OCCAS CI GAR Alcohol Use Standard Drinks/Week Comments Not Currently 0 (1 standard drink = 0.6 oz pur e alcohol) AUDIT-C Answer Date Recorded Q1: How often do you have a drink containing alcohol? 4 or more times a week 08/02/2021 Q2: How many drinks containi ng alcohol do you have on a typical day when you are drinking? 1 or 2 Q3: How often do you have si x or more drinks on one occasion? Never 08/02/2021 Sex and Gender Information Value Date Recorded Sex Assigned at Not on file Legal Sex Male 9:21 AM EDT Gender Identity Not on file Sexual Orientation Not on file Last Filed Vital Signs Vital Sign Reading Time Taken Comments Blood Pressure 100/61 09/01/2021 11:00 AM EST Pulse 103 09/01/2021 11:00 AM EST Temperature 37 C (98.6 F) 09/01/2021 11:00 AM EST Respiratory Rate 17 09/01/2021 11:00 AM EST Oxygen Saturation 97% 09/01/2021 11:00 AM EST Inhaled Oxygen Concentration - - Weight 102.1 kg (225 lb) 11/09/2021 12:50 PM EST Height 177.8 cm (5' 10 ) 11/09/2021 12:50 PM EST Body Mass Index 32.28 11/09/2021 12:50 PM EST Plan of Treatment Health Maintenance Due Date Last Done Comments CT Colonography 1966 Colonoscopy 1966 Colorectal Cancer Screening 1966 FIT-DNA 1966 FIT 1966 FOBT 1966 Sigmoidoscopy 1966 Hepatitis B (HepB) Vaccine (3 of 3 - 19+ 3-dose series) 08/21/2014 03/22/2014, 03/22/2014, 02/18/2014, Additional history exists Shingles (Shingrix) (1 of 2) 2016 Pneumococcal Vaccines >50 yo (2 of 2 - PCV) 08/31/2022 08/31/2021 Tdap/Td Vaccine >11 yo (2 - Td or Tdap) 02/19/2024 02/18/2014 Annual SDOH Screening 09/30/2024 Influenza Vaccine (#1) 2025 , 08/15/2021, 09/30/2015 Hepatitis A (HepA) Vaccine Aged Out 02/18/2014 N o longer eligible based on patient's age to complete this topic Haemophilus Influenzae Type B (Hib) Vaccine Aged Out No longer eligible based on patient's age to complete this topic Meningococcal ACWY Aged Out No longer eligible based on patient's age to complete this topic Polio (IPV) Aged Out No longer eligi ble based on patient's age to complete this topic Rotavirus (RV) Vaccine Aged Out No lo nger eligible based on patient's age to complete this topic Medical Devices Implanted Type Area Merchandise Adjustment Clerk Device Identifier Shelf Expiration Date Model / Serial / Lot Graft Bone Infuse Med [id number] - [id number] Implanted:Qty: 1 on 08/15/2021 by Avel Marcum MD at [facility] BMP N/A: Spine Lumbar [employer] DANEK 05/31/2023 [id number] / / [id number] Graft Bone Infuse Med [id number] - [id number] Implanted:Qty: 1 on 08/15/2021 by Avel Marcum MD at [facility] BMP N/A: Spine Lumbar [employer] SO[employer] DANEK 05/31/2023 [id number] / / [id number] Wheeler 5.0 X17.5 [id number] - [id number] Implanted:Qty: 1 on 08/15/2021 by Avel Marcum MD at [facility] Bolts N/A: Spine Lumbar NUVASIVE 02/12/2026 [id number] / / [id number] Cage Alif [id number] - [id number] Implanted:Qty: 1 on 08/15/2021 by Avel Marcum MD at [facility] Cages N/A: Spine Lumbar NUVASIVE 01/08/2026 [id number] / / [id number] [place] Dbf W/Tubes 6 [id number] - [id number] Implanted:Qty: 1 on 08/15/2021 by Avel Marcum MD at [facility] Grafts N/A: Spine Lumbar [employer] SO[employer] DANEK 05/24/2023 [id number] / [id number] / Membrane Seprafilm 5x6 [id number] - [id number] Implanted:Qty: 1 on 08/15/2021 by Avel Marcum MD at [facility] Mesh N/A: Spine Lumbar [employer] 09/10/2023 [id number] / / [id number] Kit Sealant Surgiflo Mtrx 2994 - [id number] Implanted:Qty: 1 on 08/15/2021 by Avel Marcum MD at [facility] OTHER - IMPLANTS - OTHER N/A: Spine Lumbar J 11/27/2022 [id number] / / [id number] Ferdinand Co Cr 5.5x110 [id number] - [id number] Implanted:Qty: 2 on 08/15/2021 by Avel Marcum MD at [facility] Rods N/A: Spine Lumbar [employer] [id number] / / Screw Solra 6.5x50 [id number] - [id number] Implanted:Qty: 6 on 08/15/2021 by Avel Marcum MD at [facility] Screws N/A: Spine Lumbar [employer] [id number] / / Screw Solra 7.5x40 [id number] - [id number] Implanted:Qty: 2 on 08/15/2021 by Avel Marcum MD at [facility] Screws N/A: Spine Lumbar [employer] [id number] / / Screw Ball 8.5x90 [id number] - [id number] Implanted:Qty: 2 on 08/15/2021 by Avel Marcum MD at [facility] Screws N/A: Spine Lumbar [employer] [id number] / / Screw Set Solra 5.5 [id number] - [id number] Implanted:Qty: 10 on 08/15/2021 by Avel Marcum MD at [facility] Screws N/A: Spine Lumbar [employer] [id number] / / Spacer 22x11 [id number] - [id number] Implanted:Qty: 1 on 08/15/2021 by Avel Marcum MD at [facility] Spacer N/A: Spine Lumbar [employer]ANEK 02/20/2029 [id number] / / [id number] Spacer 22x11 [id number] - [id number] Implanted:Qty: 1 on 08/15/2021 by Avel Marcum MD at [facility] Spacer N/A: Spine Lumbar [employer]ANEK 05/23/2025 [id number] / / [id number] Advance Directives * Full Code (Latest Code Status on File) Date Activated Date Inactivated Comments 08/30/2021 1:32 PM 09/01/2021 6:22 PM * Full Code Date Activated Date Inactivated Comments 08/15/2021 8:20 PM 08/18/2021 3:07 PM * Full Code Date Activated Date Inactivated Comments 05/20/2020 5:58 PM 05/22/2020 2:13 PM * Full Code Date Activated Date Inactivated Comments 05/20/2020 11:41 AM 05/20/2020 5:58 PM * Full Code Date Activated Date Inactivated Comments 05/19/2020 3:53 PM 05/20/2020 11:41 AM Care Teams Brick Off Bearer Relationship Specialty Start Date End Date Olya Hicks MD [address] [place] [address] PCP - General Internal Medicine 09/27/17
== END 2025-04-20 23:59 | disposition home or self-care (01) ==
LOC: LAB.DROPOF 04-21 11:39
PROVIDERS: PCP Family Medicine; Visit Provider Family Medicine
DX: E11.9 Type 2 diabetes mellitus without complications (principal)
CPT/HCPCS: 80048